=== PATIENT | male | born 2005 ===

== ENCOUNTER 2024-02-15 23:00 | Emergency (ER) | payer OTHER ==
[~2024-02-15] VITALS: Ht 170.2 cm; Wt 59.1 kg
[2024-02-15 23:07] VITALS: TEMP 98
[2024-02-15] MEDS ORDERED: Famotidine 20 MG TAB PO ONE (23:45)
[2024-02-15] MEDS ORDERED: Glucagon 1 MG VIAL IM ONE (23:45)
[2024-02-15] MEDS ORDERED: Mag/Al Hydrox/Simeth Susp 30 ML CUP PO ONE (23:45)
[2024-02-15] MEDS ORDERED: Lidocaine 2% Viscous 15 ML UNIT DOSE MM ONE (23:45)
[2024-02-16] MEDS ORDERED: diphenhydrAMINE 25 MG CAP PO ONE (00:45)
[2024-02-16] MEDS ORDERED: Acetaminophen 500 MG TAB PO ONE (00:45)
[2024-02-16 01:17] VITALS: BP 117/75; PULSE 64
== END 2024-02-16 01:21 | disposition home or self-care (01) ==
LOC: COL.ER 23:00
DX: F45.8 Other somatoform disorders (principal)